=== PATIENT | female | born 1970 | race Two or more races ===

== ENCOUNTER → 2017-01-16 | Outpatient (CLI) | payer OTHER ==
--- NOTE | ~2017-01-16 | MY29 ---
[facility] A Service of [facility] RADIOLOGY TEXT RESULTS PATIENT: MAYDA TUCKER LOCATION: [facility] : 70 UNIT #: [id number] AGE: [address]: William Hart MD SEX: F ORDER DR: [id number] [facility]. [place], [place] [address] [id number] O MR#: [id number] Acc #: [id number] NAME: MAYDA TUCKER : 1970 SEX: F STUDY DATE/TIME: 01/16/2017 16:27 UNIT: [facility] ROOM: STUDY DESCRIPTION: [facility] SCREENING W/ CAD BILAT Attending Physician: William Hart M.D. Referring Physician: William Hart M.D. Ordering Physician: William Hart M.D. Primary Care Physician: William Hart M.D. MEDICAL IMAGING REPORT This report is preliminary unless electronic signature is present EXAM Bilateral Digital Screening Mammogram with CAD INDICATION Breast cancer screening. 46-year-old asymptomatic female. No personal or family history of breast cancer. COMPARISON December 18, 2014 December 02, 2012 November 12, 2012 FINDINGS There are scattered fibroglandular tissues. No suspicious findings are present. IMPRESSION No mammographic evidence of malignancy. Annual screening mammography and clinical breast exam are recommended. A result letter will be sent to the patient. Patients over the age of 40 are entered into a reminder system with target due date for the next mammogram. BIRADS: 1 Negative Dictated by... Eduar Munroe M.D. THIS IS AN ELECTRONICALLY VERIFIED REPORT Eduar Munroe M.D. at 01/17/2017 11:07 PM BLM/rnr [facility] A Service [facility] RADIOLOGY TEXT RESULTS PATIENT: MAYDA TUCKER LOCATION: [facility] : 70 UNIT #: [id number] AGE: [address]: William Hart MD SEX: F ORDER DR: TD: 01/17/2017 16:10 JOB #: [id number] MEDICAL IMAGING REPORT Page 1 of 1 COPY
== END | disposition home or self-care (01) ==
LOC: CWCC 09-28 10:30
DX: Z12.31 Encounter for screening mammogram for malignant neoplasm of breast (principal)
CPT/HCPCS: G0202